=== PATIENT | male | born 1985 | race American Indian/Alaskan Native ===

== ENCOUNTER 2018-10-02 18:38 | Emergency (ER) | payer SELFPAY ==
[~2018-10-02] VITALS: Ht 175.3 cm; Wt 85.9 kg
[2018-10-02 18:48] VITALS: BP 129/87; TEMP 98.3
[2018-10-02 20:26] LABS: BASO # 0.1 (0.0-0.2); BASO % 0.9 % (0.0-2.0); EOS # 0.4 (0.0-0.7); EOS % 3.8 % (0-4.0); GRAN # 6.2 (1.4-6.5); GRAN % 52.8 % (42.2-75.2); HEMATOCRIT 47.7 % (42.0-52.0); HEMOGLOBIN 15.9 g/dl (13.5-18.0); LYMPH # 3.9 (1.2-3.4); LYMPH % 33.5 % (20.0-51.0); MEAN CELL VOLUME 80 fl (80.0-100.0); MEAN CORPUSCULAR HEMOGLOBIN 27 pg (27.0-31.0); MEAN CORPUSCULAR HGB CONC 33 g/dl (33.0-37.0); MEAN PLATELET VOLUME 9.1 fl (7.4-10.4); MONO % 8.6 % (1.7-9.3); PLATELET COUNT 315 K/mm3 (130-400); REDCELL DISTRIBUTION WIDTH-CV 13.7 % (11.5-14.5)
[2018-10-02] MEDS ORDERED: DOXYCYCLINE HY100 MG PO (20:28)
[2018-10-02] MEDS ORDERED: CEPHALEXIN500 M1 PO (20:28)
[2018-10-02 20:38] LABS: ALANINE AMINOTRANSFERASE 18 U/L (21-72); ALBUMIN 4.2 gm/dL (3.5-5.0); ALKALINE PHOSPHATASE 107 U/L (50-136); ANION GAP 12 mmol/L (7-16); AST,SGOT 26 U/L (15-37); BILIRUBIN,TOTAL 0.3 mg/dL (0.0-1.0); BLOOD UREA NITROGEN 17 mg/dL (9-20); CALCIUM 9.3 mg/dL (8.4-10.2); CARBON DIOXIDE 24 mmol/L (22-30); CHLORIDE 102 mmol/L (98-107); CREATININE, serum 0.89 (0.66-1.25); GLUCOSE 134 mg/dL (74-106); POTASSIUM 4.2 mmol/L (3.4-5.0); SODIUM 138 mmol/L (137-145); TOTAL PROTEIN 7.5 gm/dL (6.4-8.2)
[2018-10-02 20:42] LABS: C-REACTIVE PROTEIN < 0.5 mg/dL (0.0-0.9)
[2018-10-02 21:02] VITALS: PULSE 99
== END 2018-10-02 21:02 | disposition home or self-care (01) ==
LOC: COL.ER 18:38
PROVIDERS: Physician Assistant
DX: L02.611 Cutaneous abscess of right foot (principal); E11.9 Type 2 diabetes mellitus without complications; M89.9 Disorder of bone, unspecified

== ENCOUNTER 2022-05-19 10:18 | Emergency (ER) | payer SELFPAY ==
[~2022-05-19] VITALS: Ht 175.3 cm; Wt 79.1 kg
[~2022-05-19 10:18] MED LIST: CEPHALEXIN500 M1 PO; DOXYCYCLINE HY100 MG PO
[2022-05-19 10:22] VITALS: BP 130/91; TEMP 98.5
[2022-05-19 11:07] LABS: STREP SCREEN NEGATIVE
[2022-05-19] MEDS ORDERED: MEDROL 4MG DOSPA4 MG PO (11:39)
[2022-05-19 12:00] VITALS: PULSE 99
== END 2022-05-19 12:20 | disposition home or self-care (01) ==
LOC: COL.ER 10:18
PROVIDERS: Nurse Practitioner
DX: J21.9 Acute bronchiolitis, unspecified (principal); Z20.822 Contact with and (suspected) exposure to COVID-19